=== PATIENT | female | born 1990 | race African-American/Black ===

== ENCOUNTER 2020-12-12 23:31 | Emergency (ER) | payer OTHER ==
[~2020-12-12] VITALS: Ht 170.2 cm; Wt 70.3 kg
[2020-12-13] MEDS ORDERED: AMOX1TAB5 PO (03:24)
[2020-12-13] MEDS ORDERED: PERCOCET 5-3251 EACH PO (03:24)
[2020-12-13] MEDS ORDERED: INTESTINEX680 M2 PO (03:24)
== END 2020-12-13 03:33 | disposition home or self-care (01) ==
LOC: ER 23:31
DX: S52.124A Nondisplaced fracture of head of right radius, initial encounter for closed fracture (principal); S81.022A Laceration with foreign body, left knee, initial encounter; W18.39XA Other fall on same level, initial encounter; Y93.89 Activity, other specified; Y92.488 Other paved roadways as the place of occurrence of the external cause; Y99.8 Other external cause status